=== PATIENT | female | born 1945 | race Caucasian/White ===

== ENCOUNTER 2017-04-13 10:29 | Inpatient (IN) | payer MEDICARE, OTHER ==
[~2017-04-13] VITALS: Ht 157.5 cm; Wt 81.6 kg
[~2017-04-13 10:29] MED LIST: ACET500T33 PO; CELE400C PO; CHOL5000 PO; FERR-26 PO; LECI400C PO; OMEP40CA5 PO; RASP100C PO; WARF-78 PO
--- NOTE | 2017-04-13 10:39 | EKG ---
[facility] [address] [place] [address] Test Date: 2017-04-13 Test Time: 10:35:08 Pat Name: NOAH LYN Department: Room: Gender: F Reservations Manager: : 1945 Requested By: VEDA MILLER Order Number: [id number] Reading MD: Measurements Intervals Crawford Rate: 89 P: 44 OK: 150 QRS: -5 QRSD: 80 T: 34 QT: 350 QTc: 427 Interpretive Statements SINUS RHYTHM LEFT ATRIAL ABNORMALITY LEFTWARD AXIS QRS(T) CONTOUR ABNORMALITY CONSIDER ANTEROLATERAL MYOCARDIAL DAMAGE ABNORMAL ECG RI6.01 No previous ECG available for comparison
[2017-04-13 10:45] LABS: BASO # 0.1 x10^3/uL (0.0-0.2); BASO % 1 % (0-3); EOS % 5 % (0-3); HEMOGLOBIN 13.4 g/dL (12.0-15.5); LYMPH # 2.8 x10^3/uL (1.0-4.8); LYMPH % 32 % (24-48); MEAN CORPUSCULAR HEMOGLOBIN 28 pg (25-35); MEAN CORPUSCULAR HGB CONC 33 g/dL (31-37); MEAN CORPUSCULAR VOLUME 87 fL (79-100); MONO % 8 % (0-9); NEUT % 55 % (31-73); PLATELET COUNT 257 x10^3/uL (140-400); RED BLOOD COUNT 4.74 x10^6/uL (3.50-5.40); RED CELL DISTRIBUTION WIDTH 13.6 % (11.5-14.5); WHITE BLOOD COUNT 8.9 x10^3/uL (4.0-11.0)
[2017-04-13] MEDS ORDERED: ASPIRIN 325 MG TABLET PO ONE (10:45)
[2017-04-13] MEDS: NITROGLYCERIN SUBLINGUAL 0.4 MG BOTTLE OF 25. SL PRN ×2 (10:52→11:08)
--- NOTE | 2017-04-13 10:53 | PHYS DOC ---
Past Medical History Past Medical History: GERD, Hypertension Past Surgical History: Hysterectomy, Knee Replacement, Other Additional Past Surgical Histo: BILATERAL KNEE REPLACEMENT, R WRIST Alcohol Use: None Drug Use: None Adult General Chief Complaint Chief Complaint: CHEST PAIN HPI HPI Patient is a 71 year old female who presents with chest pain on the left side of her chest for 2 weeks. Patient describes it as dull and pressure-like with radiation into her back and into her arm. It improves with rest, patient states she thinks it's brought on by stress. She does get short of breath when the pain occurs. No prior similar symptoms. Denies any known history of coronary artery disease. She also reports that she does not take anything for her blood pressure which is notably elevated today. Patient denies any lung or cardiac history, no risk factors for PE or DVTs. Primary care physician is Dr. Rod. Review of Systems Review of Systems Constitutional: Denies fever or chills [] Eyes: Denies change in visual acuity, redness, or eye pain [] HENT: Denies nasal congestion or sore throat [] Respiratory: Denies cough or shortness of breath [] Cardiovascular: No additional information not addressed in HPI [] GI: Denies abdominal pain, nausea, vomiting, bloody stools or diarrhea [] : Denies dysuria or hematuria [] Musculoskeletal: Denies back pain or joint pain [] Integument: Denies rash or skin lesions [] Neurologic: Denies headache, focal weakness or sensory changes [] Endocrine: Denies polyuria or polydipsia [] All other systems were reviewed and found to be within normal limits, except as documented in this note. Current Medications Current Medications Current Medications Medications (Trade) Dose Ordered Sig/[facility] Start Time Stop Time Status Last Admin Dose Admin Aspirin (Rajesh Aspirin) 325 mg 1X ONCE 04/13/17 10:45 04/13/17 10:46 DC 04/13/17 10:51 325 MG Nitroglycerin (Nitrostat) 0.4 mg PRN Q5MIN PRN 04/13/17 10:45 04/13/17 11:08 0.4 MG Allergies Allergies Allergies Coded Allergies Type Severity Reaction Last Updated Verified No Known Drug Allergies 09/13/13 No Physical Exam Physical Exam Constitutional: Well developed, well nourished, no acute distress, non-toxic appearance. [] HENT: Normocephalic, atraumatic, bilateral external ears normal, oropharynx moist, no oral exudates, nose normal. [] Eyes: PERRLA, EOMI, conjunctiva normal, no discharge. [] Neck: Normal range of motion, no tenderness, supple, no stridor. [] Cardiovascular:Heart rate regular with regular rhythm, no murmur [] Lungs & Thorax: Bilateral breath sounds clear to auscultation, no wheeze, crackles or rhonchi Abdomen: Bowel sounds normal, soft, no tenderness, no masses, no pulsatile masses. [] Skin: Warm, dry, no erythema, no rash. [] Back: No tenderness, no CVA tenderness. [] Extremities: No tenderness, no cyanosis, no clubbing, ROM intact, no edema. Negative Homans bilaterally Neurologic: Alert and oriented X 3, normal motor function, normal sensory function, no focal deficits noted. [] Psychologic: Affect normal, judgement normal, mood normal. [] Current Patient Data Vital Signs Vital Signs Date Time Temp Pulse Resp B/P (MAP) Pulse Ox O2 Delivery O2 Flow Rate FiO2 04/13/17 11:18 86 18 157/74 (101) Room Air 04/13/17 11:06 96 04/13/17 10:40 97.5 97.5 Lab Values Laboratory Tests Test 04/13/17 10:35 White Blood Count 8.9 x10^3/uL (4.0-11.0) Red Blood Count 4.74 x10^6/uL (3.50-5.40) Hemoglobin 13.4 g/dL (12.0-15.5) Hematocrit 41.0 % (36.0-47.0) Mean Corpuscular Volume 87 fL (79-100) Mean Corpuscular Hemoglobin 28 pg (25-35) Mean Corpuscular Hemoglobin Concent 33 g/dL (31-37) Red Cell Distribution Width 13.6 % (11.5-14.5) Platelet Count 257 x10^3/uL (140-400) Neutrophils (%) (Auto) 55 % (31-73) Lymphocytes (%) (Auto) 32 % (24-48) Monocytes (%) (Auto) 8 % (0-9) Eosinophils (%) (Auto) 5 % (0-3) H Basophils (%) (Auto) 1 % (0-3) Neutrophils # (Auto) 4.8 x10^3uL (1.8-7.7) Lymphocytes # (Auto) 2.8 x10^3/uL (1.0-4.8) Monocytes # (Auto) 0.7 x10^3/uL (0.0-1.1) Eosinophils # (Auto) 0.4 x10^3/uL (0.0-0.7) Basophils # (Auto) 0.1 x10^3/uL (0.0-0.2) Prothrombin Time 12.3 SEC (11.7-14.0) Prothrombin Time INR 1.0 (0.8-1.1) Sodium Level 141 mmol/L (136-145) Potassium Level 4.1 mmol/L (3.5-5.1) Chloride Level 103 mmol/L (98-107) Carbon Dioxide Level 28 mmol/L (21-32) Anion Gap 10 (6-14) Blood Urea Nitrogen 17 mg/dL (7-20) Creatinine 1.0 mg/dL (0.6-1.0) Estimated GFR (Cockcroft-Gault) 54.3 BUN/Creatinine Ratio 17 (6-20) Glucose Level 132 mg/dL (70-99) H Calcium Level 9.9 mg/dL (8.5-10.1) Magnesium Level 2.0 mg/dL (1.8-2.4) Total Bilirubin 0.6 mg/dL (0.2-1.0) Aspartate Amino Transferase (AST) 16 U/L (15-37) Alanine Aminotransferase (ALT) 24 U/L (14-59) Alkaline Phosphatase 116 U/L (46-116) Troponin I Quantitative < 0.017 ng/mL (0.000-0.055) PF-Oua-P-Type Natriuretic Peptide 110 pg/mL (0-124) Total Protein 7.4 g/dL (6.4-8.2) Albumin 3.9 g/dL (3.4-5.0) Albumin/Globulin Ratio 1.1 (1.0-1.7) Laboratory Tests 04/13/17 10:35 Laboratory Tests 04/13/17 10:35 EKG EKG 1035: 89 bpm, sinus, normal axis, normal intervals, no appreciable ST elevation or depression, nonischemic T waves, interpreted by me[] Heart monitor shows 83 bpm, sinus, no appreciable Arrhythmia, interpreted by me spo2: 99 % on nasal cannula o2 with good wave form interpreted by me. Radiology/Procedures Radiology/Procedures Chest x-ray: IMPRESSION: No acute abnormality detected. Course & Med Decision Making Course & Med Decision Making Pertinent Labs and Imaging studies reviewed. (See chart for details) Was given sprain and nitroglycerin. The nitroglycerin did improve her pain but it returned. She was given additional nitroglycerin. I spoke with Dr. Rod who accepted this patient for admission, cardiology consult placed. Dragon Disclaimer Dragon Disclaimer This electronic medical record was generated, in whole or in part, using a voice recognition dictation system. Departure Departure Impression: Primary Impression: Unstable angina Additional Impression: Accelerated hypertension Disposition: 09 ADMITTED INPATIENT Admitting Physician: Adrienne Rod Condition: GUARDED Referrals: ADRIENNE ROD MD (PCP) Problem Qualifiers VEDA MILLER MD Apr 13, 2017 10:53
[2017-04-13 10:54] LABS: PROTHROMBIN TIME PATIENT 12.3 SEC (11.7-14.0)
[2017-04-13 10:57] LABS: CALCIUM 9.9 mg/dL (8.5-10.1); GFR 54.3; POTASSIUM 4.1 mmol/L (3.5-5.1)
--- NOTE | 2017-04-13 10:58 | RAD ---
Indication: Chest pain for 2 weeks. Time of exam 10:52 AM Correlation is made with prior study from 12/03/2008. FINDINGS: The heart size is normal. The lungs are clear. No pleural effusion or pneumothorax is identified. The pulmonary vascularity is normal. IMPRESSION: No acute abnormality detected.
[2017-04-13 11:03] LABS: ALBUMIN 3.9 g/dL (3.4-5.0); ALBUMIN/GLOBULIN RATIO 1.1 (1.0-1.7); TOTAL BILIRUBIN 0.6 mg/dL (0.2-1.0); TOTAL PROTEIN 7.4 g/dL (6.4-8.2)
[2017-04-13] MEDS ORDERED: NITROGLYCERIN SUBLINGUAL 0.4 MG BOTTLE OF 25. SL PRN (11:30)
[2017-04-13] MEDS ORDERED: fentaNYL PF VIAL 100 MCG/2 ML VIAL IV PRN (11:30)
[2017-04-13] MEDS ORDERED: ONDANSETRON PF 4 MG/2 ML VIAL. IV PRN (11:30)
[2017-04-13 12:00] VITALS: BP 171/73
[2017-04-13] MEDS ORDERED: CALC500T54 PO (13:42)
[2017-04-13] MEDS ORDERED: REGADENOSON 0.4 MG/5 ML DISP.SYRIN. IV ONE (13:45)
[2017-04-13 19:44] VITALS: BP 132/72
[2017-04-13 22:50] VITALS: BP 135/75
[2017-04-14 02:47] VITALS: BP 169/77
[2017-04-14 07:00] VITALS: BP 154/72
[2017-04-14] MEDS ORDERED: ASPI81TA50 PO (08:00)
--- NOTE | 2017-04-14 08:11 | PDOC ---
PROGRESS NOTES Subjective Subjective Patient reports some chest soreness persists, improved from admission. Objective Objective Vital Signs Date Time Temp Pulse Resp B/P (MAP) Pulse Ox O2 Delivery O2 Flow Rate FiO2 04/14/17 02:47 97.8 78 16 169/77 (107) 94 Room Air 97.8 Intake and Output 04/14/17 07:00 Intake Total 370 ml Output Total 250 ml Balance 120 ml Intake Oral 370 ml Output Urine Total 250 ml # Voids 3 Physical Exam Abdomen: Normal bowel sounds, Soft, No tenderness Heart: Regular rate Extremities: No edema General: Alert, Oriented X3, No acute distress Lungs: Clear to auscultation, Other (left chest wall with scant TTP ) Assessment Assessment Problems Medical Problems: (1) Accelerated hypertension Status: Acute (2) Unstable angina Status: Acute Plan Plan of Care 1. Chest pain - some discomfort persists. Troponin WNL x3. EKG without acute ischemic change. Patient had first part of stress test yesterday, will have resting images today. CXR is clear and patient is without evidence of acute infection. Suspect musculoskeletal origin of pain. Hope to send patient home today if stress test is negative and Cardiology is in agreement. Continue ASA 81 mg daily. 2. elevated BP - patient does not have history of HTN and BP on OV's is usually WNL, was 126/76 on OV in January. Patient advised to check BP at home and bring log of this to next OV to review. 3. glucose intolerance - diet controlled for patient, last A1C was 6.0. Continue to watch diet. 4. GERD - controlled, continue PPI. Comment Review of Relevant I have reviewed the following items ilda (where applicable) has been applied. Labs Laboratory Tests Test 04/13/17 10:35 04/13/17 17:00 04/13/17 23:15 White Blood Count 8.9 x10^3/uL (4.0-11.0) Red Blood Count 4.74 x10^6/uL (3.50-5.40) Hemoglobin 13.4 g/dL (12.0-15.5) Hematocrit 41.0 % (36.0-47.0) Mean Corpuscular Volume 87 fL (79-100) Mean Corpuscular Hemoglobin 28 pg (25-35) Mean Corpuscular Hemoglobin Concent 33 g/dL (31-37) Red Cell Distribution Width 13.6 % (11.5-14.5) Platelet Count 257 x10^3/uL (140-400) Neutrophils (%) (Auto) 55 % (31-73) Lymphocytes (%) (Auto) 32 % (24-48) Monocytes (%) (Auto) 8 % (0-9) Eosinophils (%) (Auto) 5 % (0-3) Basophils (%) (Auto) 1 % (0-3) Neutrophils # (Auto) 4.8 x10^3uL (1.8-7.7) Lymphocytes # (Auto) 2.8 x10^3/uL (1.0-4.8) Monocytes # (Auto) 0.7 x10^3/uL (0.0-1.1) Eosinophils # (Auto) 0.4 x10^3/uL (0.0-0.7) Basophils # (Auto) 0.1 x10^3/uL (0.0-0.2) Prothrombin Time 12.3 SEC (11.7-14.0) Prothromb Time International Ratio 1.0 (0.8-1.1) Sodium Level 141 mmol/L (136-145) Potassium Level 4.1 mmol/L (3.5-5.1) Chloride Level 103 mmol/L (98-107) Carbon Dioxide Level 28 mmol/L (21-32) Anion Gap 10 (6-14) Blood Urea Nitrogen 17 mg/dL (7-20) Creatinine 1.0 mg/dL (0.6-1.0) Estimated GFR (Cockcroft-Gault) 54.3 BUN/Creatinine Ratio 17 (6-20) Glucose Level 132 mg/dL (70-99) Calcium Level 9.9 mg/dL (8.5-10.1) Magnesium Level 2.0 mg/dL (1.8-2.4) Total Bilirubin 0.6 mg/dL (0.2-1.0) Aspartate Amino Transf (AST/SGOT) 16 U/L (15-37) Alanine Aminotransferase (ALT/SGPT) 24 U/L (14-59) Alkaline Phosphatase 116 U/L (46-116) Troponin I Quantitative < 0.017 ng/mL (0.000-0.055) < 0.017 ng/mL (0.000-0.055) < 0.017 ng/mL (0.000-0.055) DM-Qxr-A-Type Natriuretic Peptide 110 pg/mL (0-124) Total Protein 7.4 g/dL (6.4-8.2) Albumin 3.9 g/dL (3.4-5.0) Albumin/Globulin Ratio 1.1 (1.0-1.7) Laboratory Tests Test 04/13/17 10:35 04/13/17 17:00 04/13/17 23:15 White Blood Count 8.9 x10^3/uL (4.0-11.0) Red Blood Count 4.74 x10^6/uL (3.50-5.40) Hemoglobin 13.4 g/dL (12.0-15.5) Hematocrit 41.0 % (36.0-47.0) Mean Corpuscular Volume 87 fL (79-100) Mean Corpuscular Hemoglobin 28 pg (25-35) Mean Corpuscular Hemoglobin Concent 33 g/dL (31-37) Red Cell Distribution Width 13.6 % (11.5-14.5) Platelet Count 257 x10^3/uL (140-400) Neutrophils (%) (Auto) 55 % (31-73) Lymphocytes (%) (Auto) 32 % (24-48) Monocytes (%) (Auto) 8 % (0-9) Eosinophils (%) (Auto) 5 % (0-3) Basophils (%) (Auto) 1 % (0-3) Neutrophils # (Auto) 4.8 x10^3uL (1.8-7.7) Lymphocytes # (Auto) 2.8 x10^3/uL (1.0-4.8) Monocytes # (Auto) 0.7 x10^3/uL (0.0-1.1) Eosinophils # (Auto) 0.4 x10^3/uL (0.0-0.7) Basophils # (Auto) 0.1 x10^3/uL (0.0-0.2) Prothrombin Time 12.3 SEC (11.7-14.0) Prothromb Time International Ratio 1.0 (0.8-1.1) Sodium Level 141 mmol/L (136-145) Potassium Level 4.1 mmol/L (3.5-5.1) Chloride Level 103 mmol/L (98-107) Carbon Dioxide Level 28 mmol/L (21-32) Anion Gap 10 (6-14) Blood Urea Nitrogen 17 mg/dL (7-20) Creatinine 1.0 mg/dL (0.6-1.0) Estimated GFR (Cockcroft-Gault) 54.3 BUN/Creatinine Ratio 17 (6-20) Glucose Level 132 mg/dL (70-99) Calcium Level 9.9 mg/dL (8.5-10.1) Magnesium Level 2.0 mg/dL (1.8-2.4) Total Bilirubin 0.6 mg/dL (0.2-1.0) Aspartate Amino Transf (AST/SGOT) 16 U/L (15-37) Alanine Aminotransferase (ALT/SGPT) 24 U/L (14-59) Alkaline Phosphatase 116 U/L (46-116) Troponin I Quantitative < 0.017 ng/mL (0.000-0.055) < 0.017 ng/mL (0.000-0.055) < 0.017 ng/mL (0.000-0.055) ND-Hsx-F-Type Natriuretic Peptide 110 pg/mL (0-124) Total Protein 7.4 g/dL (6.4-8.2) Albumin 3.9 g/dL (3.4-5.0) Albumin/Globulin Ratio 1.1 (1.0-1.7) Medications Current Medications Aspirin (Rajesh Aspirin) 325 mg 1X ONCE PO Last administered on 04/13/17 10:51 ; Start 04/13/17 at 10:45; Stop 04/13/17 at 10:46; Status DC Nitroglycerin (Nitrostat) 0.4 mg PRN Q5MIN PRN SL CHEST PAIN Last administered on 04/13/17 11:08; Start 04/13/17 at 10:45 Ondansetron HCl (Zofran) 4 mg PRN Q8HRS PRN IV NAUSEA/VOMITING; Start 04/13/17 at 11:30; Stop 04/14/17 at 11:29 Fentanyl Citrate (Fentanyl 2ml Vial) 50 mcg PRN Q1HR PRN IV PAIN; Start at 11:30; Stop 04/14/17 at 11:29 Nitroglycerin (Nitrostat) 0.4 mg PRN Q5MIN PRN SL CHEST PAIN; Start 04/13/17 at 11:30; Stop 04/14/17 at 11:29 Regadenoson (Lexiscan) 0.4 mg 1X ONCE IV ; Start 04/13/17 at 13:45; Stop at 13:46; Status DC Dobutamine HCl 100 mg/Sodium Chloride 108 ml @ 0 mls/hr 1X ONCE IV Last administered on 04/13/17t 14:15; Start 04/13/17 at 14:15; Stop 04/13/17 at 14:16 ; Status DC Active Scripts Active Aspir-Low (Aspirin) 81 Mg Tablet.dr 1 Tab PO DAILY Reported Calcium (Calcium Carbonate) 500 Mg Tab.chew 500 Mg PO DAILY Tylenol Extra Strength (Acetaminophen) 500 Mg Tablet 1,000 Mg PO DAILY08 Vitamin D3 (Cholecalciferol (Vitamin D3)) 5,000 Unit Capsule 10,000 Unit PO DAILY08 Lecithin (Lecithin, Soy) 400 Mg Capsule 400 Mg PO DAILY08 Omeprazole 40 Mg Capsule.dr 40 Mg PO DAILY08 Vitals/I & O Vital Sign - Last 24 Hours 04/13/17 04/13/17 04/13/17 04/13/17 10:34 10:40 10:52 10:57 Temp 97.5 97.5 Pulse 93 89 86 109 Resp 18 18 18 B/P (MAP) 214/92 (132) 214/92 (132) 204/93 159/79 (105) Pulse Ox 97 97 97 O2 Delivery Room Air Room Air Room Air 04/13/17 04/13/17 04/13/17 04/13/17 11:06 11:08 11:18 12:00 Temp 97.7 97.7 Pulse 86 84 86 68 Resp 17 18 20 B/P (MAP) 160/76 (104) 160/76 157/74 (101) 171/73 (105) Pulse Ox 96 96 O2 Delivery Room Air Room Air Room Air 04/13/17 04/13/17 04/13/17 04/13/17 12:30 19:44 19:45 22:50 Temp 98.5 98.1 98.5 98.1 Pulse 90 78 Resp 16 18 B/P (MAP) 132/72 (92) 135/75 (95) Pulse Ox 93 93 O2 Delivery Room Air Room Air Room Air Room Air 04/14/17 02:47 Temp 97.8 97.8 Pulse 78 Resp 16 B/P (MAP) 169/77 (107) Pulse Ox 94 O2 Delivery Room Air Intake and Output 04/13/17 04/13/17 04/14/17 15:00 23:00 07:00 Intake Total 250 ml 120 ml Output Total 250 ml Balance 0 ml 120 ml REMINGTON SUERO MD Apr 14, 2017 08:11
[2017-04-14] MEDS ORDERED: ACETAMINOPHEN 500 MG TABLET PO PRN (08:30)
[2017-04-14] MEDS ORDERED: ASPIRIN ENTERIC COATED 81 MG TABLET.DR. PO SCH (09:00)
--- NOTE | 2017-04-14 09:39 | RAD ---
APPROVED REPORT Test Type: Pharmacological Stress Nurse/Tech: Arianna Guerrero R.N. Test Indications: chest pain Cardiac History: htn, Medications: see ehr Medical History: see ehr Resting ECG: SR Resting Heart Rate: 80 bpm Resting Blood Pressure: 157/68mmHg Pretest Chest Pain: No chest pain Nurse/Tech Notes lungs cta, heart tones regular Consent: The procedure was explained to the patient in lay terms. Informed consent was witnessed. Dale eout was entered into G-mode. History and Stress Test performed by [facility]. Details Pharmacologic stress testing was performed using Dobutamine with a maximal infusion of 20 mcg/mg/min. There was no low-level exercise performed along with the infusion Stress Symptoms No chest pain or symptoms. POST EXERCISE Reason for Termination: Reached target heart rate Target HR: Yes Max HR: 143 bpm 90.5% of Maximum Predicted HR: 158 bpm Blood Pressure response to exercise: Normal blood pressure response during stress. Chest Pain: No. Arrhythmia: No. ST Change: Yes. Non-specific upsloping less than 1mm ST depression. Pt had no pain, just felt heart beating hard INTERPRETATION Stress EKG Conclusion: No evidence of stress induced EKG changes. Imaging Protocol IMAGE PROTOCOL: Stress Tc-99m/rest Tc-99m 2 days Rest: Stress: Viability: Radiopharm.Tc99m Sestamibi [id number] Duration 12min. Img Date 04/13/2017 Inj-Img [id number]. Stress Admin Site: IV - Left AntecubitalAdministrator: VANDANA Polk STRESS DATA End Diast. Vol.80.0mlAv. Heart Rate98.0bpm End Syst. Vol.12.0mlCO Index BSA0.0L/min Myocardial Ubnu705.0gEject. Zellfctq55.0% Stress Rates Pk. Fill Rate4.08EDV/secLVtime Pk. Fill 153.04msec Pk. Empty Rate4.53ESV/secLVtime Pk. Eject97.43msec 05/12 Pk. Fill1.39EDV/sec Stress Scores Regional WT0.00Summed WT0.00 Regional WM0.00Summed WM0.00 LV Perfusion Normal perfusion at stress. Wall Motion Normal wall motion. LV Perf. Quant 17 Seg. SSS0.00 Stress Defect Extent (% LAD)0.00Rest Defect Extent (% LAD)Rev. Defect Extent (% LAD)0.00 Stress Defect Extent (% LCX) 0.00Rest Defect Extent (% LCX)Rev. Defect Extent (% LCX)0.00 Stress Defect Extent (% RCA)0.00Rest Defect Extent (% RCA)Rev. Defect Extent (% RCA)0.00 Stress Defect Extent (% MARII)0.00Rest Defect Extent (% MARII)Rev. Defect Extent (% MARII)0.00 Other Information Quality:Good Risk Assessment: Low Risk Conclusion 1. No evidence of EKG changes with stress testing. 2. Normal perfusion at stress. 3. Low risk study. 4. EF > 60%.
--- NOTE | 2017-04-14 10:01 | PDOC ---
CARDIO Progress Notes Date and Time Date of Service 04/14/17 Time of Evaluation 0950 Subjective Subjective: No shortness of breath, No Palpitations Vitals Vitals Vital Signs Date Time Temp Pulse Resp B/P (MAP) Pulse Ox O2 Delivery O2 Flow Rate FiO2 04/14/17 08:00 Room Air 04/14/17 07:00 97.5 79 21 154/72 (99) 95 97.5 Weight Weight [ ] Input and Output Intake and Output Intake and Output 04/14/17 07:00 Intake Total 370 ml Output Total 250 ml Balance 120 ml Intake Oral 370 ml Output Urine Total 250 ml # Voids 3 Laboratory Labs Laboratory Tests Test 04/13/17 10:35 04/13/17 17:00 04/13/17 23:15 White Blood Count 8.9 x10^3/uL (4.0-11.0) Red Blood Count 4.74 x10^6/uL (3.50-5.40) Hemoglobin 13.4 g/dL (12.0-15.5) Hematocrit 41.0 % (36.0-47.0) Mean Corpuscular Volume 87 fL (79-100) Mean Corpuscular Hemoglobin 28 pg (25-35) Mean Corpuscular Hemoglobin Concent 33 g/dL (31-37) Red Cell Distribution Width 13.6 % (11.5-14.5) Platelet Count 257 x10^3/uL (140-400) Neutrophils (%) (Auto) 55 % (31-73) Lymphocytes (%) (Auto) 32 % (24-48) Monocytes (%) (Auto) 8 % (0-9) Eosinophils (%) (Auto) 5 % (0-3) Basophils (%) (Auto) 1 % (0-3) Neutrophils # (Auto) 4.8 x10^3uL (1.8-7.7) Lymphocytes # (Auto) 2.8 x10^3/uL (1.0-4.8) Monocytes # (Auto) 0.7 x10^3/uL (0.0-1.1) Eosinophils # (Auto) 0.4 x10^3/uL (0.0-0.7) Basophils # (Auto) 0.1 x10^3/uL (0.0-0.2) Prothrombin Time 12.3 SEC (11.7-14.0) Prothromb Time International Ratio 1.0 (0.8-1.1) Sodium Level 141 mmol/L (136-145) Potassium Level 4.1 mmol/L (3.5-5.1) Chloride Level 103 mmol/L (98-107) Carbon Dioxide Level 28 mmol/L (21-32) Anion Gap 10 (6-14) Blood Urea Nitrogen 17 mg/dL (7-20) Creatinine 1.0 mg/dL (0.6-1.0) Estimated GFR (Cockcroft-Gault) 54.3 BUN/Creatinine Ratio 17 (6-20) Glucose Level 132 mg/dL (70-99) Calcium Level 9.9 mg/dL (8.5-10.1) Magnesium Level 2.0 mg/dL (1.8-2.4) Total Bilirubin 0.6 mg/dL (0.2-1.0) Aspartate Amino Transf (AST/SGOT) 16 U/L (15-37) Alanine Aminotransferase (ALT/SGPT) 24 U/L (14-59) Alkaline Phosphatase 116 U/L (46-116) Troponin I Quantitative < 0.017 ng/mL (0.000-0.055) < 0.017 ng/mL (0.000-0.055) < 0.017 ng/mL (0.000-0.055) FW-Fvz-R-Type Natriuretic Peptide 110 pg/mL (0-124) Total Protein 7.4 g/dL (6.4-8.2) Albumin 3.9 g/dL (3.4-5.0) Albumin/Globulin Ratio 1.1 (1.0-1.7) Physical Exam HEENT: Neck Supple W Full Motion Chest: Symmetric LUNGS: Clear to Auscultation Heart: S1S2, RRR, no murmurs Abdomen: Soft N/T Extremities: No Edema Neurology: alert, oriented, follow commands Assessment Assessment 1. Chest pain, atypical. troponin series normal- AMI ruled out 2. Accelerated hypertension; improved but remains slightly elevated 3. GERD; PPI Recommendations Discusses addition of ACEi- patient would like to defer at this time and will follow up with PCP. If remains elevated, will consider at that time. MPI without evidence of ischemia or infarct. May discharge from a CV standpoint. SCOTTIE EMERY APRN Apr 14, 2017 10:01
--- NOTE | 2017-04-14 10:23 | DS ---
DATE OF DISCHARGE: 04/14/2017 CHIEF COMPLAINT: Chest pain. HISTORY OF PRESENT ILLNESS: The patient is a 71-year-old female with no history of coronary artery disease. She presented to the Emergency Room with the above complaint. She reported pain on the left side of her chest for over 2 weeks. The pain was dull and somewhat intermittent. There was some radiation into her back and down her left arm at times. She continued to do her normal activities, but when the symptoms persisted, her family persuaded her to come to the Emergency Room. Initial evaluation there included a chest x-ray, which was clear and an EKG, which was without acute ischemic change and initial troponin, which was negative. The patient was given nitroglycerin and seemed to have some improvement in her pain. She was admitted for further evaluation. PAST MEDICAL HISTORY: Glucose intolerance, GERD, allergic rhinitis. PAST SURGICAL HISTORY: Bilateral knee replacements, TAHBSO, right wrist ORIF. ALLERGIES: The patient has no known drug allergies. HOME MEDICATIONS: Aspirin 81 mg daily, calcium daily, omeprazole 40 mg daily. FAMILY HISTORY: Noncontributory. SOCIAL HISTORY: The patient is . She has never smoked cigarettes. She does not drink alcohol to excess. REVIEW OF SYSTEMS: The patient states that she has been feeling well. She has not had fever or chills. She has not had a cough or chest congestion. She already received her flu shot this fall. She denies abdominal pain, nausea, vomiting or problems with her bowels. She denies dysuria or increased urinary frequency. She denies lower extremity edema. She has been taking her usual medications daily. PHYSICAL EXAMINATION: GENERAL: The patient is alert and oriented x 3, resting comfortably in bed in no acute distress. HEENT: PERRL, EOMI, sclerae clear. Oropharynx: Mucous membranes moist. NECK: Supple, without lymphadenopathy. CHEST: Clear to auscultation with normal respiratory effort and good breath sounds throughout. There is scant tenderness to palpation over the left chest wall. CARDIOVASCULAR: Regular rhythm without murmur. ABDOMEN: Soft, nontender, normoactive bowel sounds are present. EXTREMITIES: Without edema. HOSPITAL COURSE: The patient was admitted and placed on telemetry where she remains in sinus rhythm. Two more troponins are completely within normal limits. The patient reports that the pain has improved, but there is still some soreness present. She has not felt the need to take any pain medication for this. The patient had the first portion of a stress test yesterday. She will complete that test today and be seen in consultation by Cardiology. If the test is negative, it is anticipated she will be able to be discharged to home. She is advised to continue aspirin daily. The patient does not have a history of hypertension and is usually normotensive at office visits. Her blood pressure was quite elevated at admission and has been somewhat labile overnight. She will be advised to monitor her blood pressure at home and bring the results to our office. If persistent elevation occurs, we will start her on blood pressure medication. The patient has glucose intolerance, which is well controlled by her diet. Her GERD is well controlled with the omeprazole. ADDENDUM: Stress test was within evidence of ischemia. FINAL DIAGNOSES: 1. Musculoskeletal chest pain. 2. Elevated blood pressure. 3. Glucose intolerance. 4. Gastroesophageal reflux disease. DISCHARGE MEDICATIONS: Remain the same as at admission. FOLLOWUP: With Dr. Rod within 2 weeks. Follow up with Cardiology as advised. REMINGTON ROD MD DR: KEYONA/vicky JOB#: [id number] / [id number] JERSON
[2017-04-14 10:41] VITALS: BP 150/81
--- NOTE | 2017-04-14 19:08 | CONS ---
DATE OF CONSULTATION: 04/13/2017 REASON FOR CONSULTATION: Chest pain. HISTORY OF PRESENT ILLNESS: The patient is a pleasant 71-year-old woman with mild history of hypertension who presented with some chest tightness over the course of the last day or so. She reports that her tightness is intermittent in nature without any significant alleviating or aggravating factors. Denies any palpitations, orthopnea, PND or lower extremity edema. PAST MEDICAL HISTORY: Hypertension. SOCIAL HISTORY: The patient denies any alcohol, tobacco or illicit drug use. FAMILY HISTORY: Noncontributory. REVIEW OF SYSTEMS: Negative for 10 out of 14 systems reviewed, unless otherwise mentioned above in HPI. ALLERGIES: None. MEDICATIONS: Please see medication list. PHYSICAL EXAMINATION: VITAL SIGNS: Stable. HEAD AND NECK: Unremarkable. HEART: Regular rate and rhythm without any murmurs, rubs or gallops. LUNGS: Clear to auscultation bilaterally. ABDOMEN: Soft, nontender, nondistended. EXTREMITIES: Without any clubbing, cyanosis or edema. NEUROLOGIC: No focal deficits. MUSCULOSKELETAL: No trauma. DIAGNOSTIC STUDIES: Reviewed: Negative cardiac enzymes and normal EKG. IMPRESSION: 1. Atypical chest pain. 2. Hypertension. RECOMMENDATIONS: I had a long discussion with the patient with regards to her risk factors and interventions for evaluation of her chest pain. She ultimately decided to proceed with a nuclear stress test, which was performed and she had a negative nuclear stress test. From a cardiac standpoint, she would be deemed low risk at this point and can be safely discharged with close followup in the office to determine if she has any recurrent chest pain. Thank you for this consultation. CHACORTA HERNDON MD DR: PAULO/vicky JOB#: [id number] / [id number]
== END 2017-04-14 11:45 | disposition home or self-care (01) | DRG 313 ==
LOC: ER 10:29 → 2 SOUTH 11:27
PROVIDERS: ADMIT Family Medicine; ATTEND Family Medicine
DX: R07.89 Other chest pain (principal); I20.0 Unstable angina; E74.39 Other disorders of intestinal carbohydrate absorption; I10 Essential (primary) hypertension; K21.9 Gastro-esophageal reflux disease without esophagitis; Z96.653 Presence of artificial knee joint, bilateral; Z79.82 Long term (current) use of aspirin; Z90.710 Acquired absence of both cervix and uterus; Z90.722 Acquired absence of ovaries, bilateral
CPT/HCPCS: 36415; 71010; 78452; 80053; 83735; 83880; 84484; 85025; 85610; 93005; 93017; 96374; 96375; 96376; A9500; J1250; 99285-25

== ENCOUNTER → 2019-11-30 | Outpatient (CLI) | payer MEDICARE ==
[~2019-11-30] MED LIST changes: +ASPI81TA50 PO; +CALC500T54 PO; -FERR-26 PO; +FERR325T14 PO; +OMEP40CA45 PO; -OMEP40CA5 PO; -WARF-78 PO; +WARF5TAB2 PO
--- NOTE | 2019-11-30 10:47 | KCIC ---
EXAM: Thoracic spine MRI without contrast. HISTORY: Thoracic radiculopathy. TECHNIQUE: Multiplanar, multisequence magnetic resonance imaging of the thoracic spine was performed without contrast. COMPARISON: None. FINDINGS: There is thoracic kyphoscoliosis. There is mild anterolisthesis at the upper thoracic levels and there is mild listhesis at multiple cervical levels, not formally assessed on this exam. There is also grade 1 anterolisthesis of L3 on L4, L4 and L5 and L5 and S1. There are degenerative changes involving the lumbar spine which are not formally assessed on this exam. There is associated foraminal and mild central canal stenosis at L3-L4. There is marrow edema centered along the anterior endplates at T5-T6. This is degenerative in appearance. There is no edema to suggest acute or subacute fracture. There are few osseous hemangiomas. There is multilevel endplate remodeling and Schmorl's node formation. No thoracic spinal cord lesion is seen. The conus terminates at T12-L1. There is a small dilated nerve root sheath cysts/perineural cyst on the right at T6-T7 and T7-T8 there is multilevel facet arthropathy involving the thoracic spine. There are few small thoracic disc bulges. There is a minimal shallow left paracentral disc protrusion at T7-T8. There is moderate left facet arthropathy contributing to mild left foraminal stenosis at T10-T11. There is a 1.4 cm T2 hyperintense lesion within the right thyroid lobe. There is a moderate hiatal hernia. There is a large simple left renal cyst measuring 6.5 cm. No follow-up is routinely recommended for simple renal cysts. IMPRESSION: 1. 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 There is associated left foraminal stenosis at T10-T11. No significant central canal stenosis or thoracic spinal cord lesion is seen. 2. Multilevel degenerative change involving the cervical and lumbar spine, not formally assessed on this exam. 3. Mild thoracic kyphoscoliosis. 4. 1.4 cm T2 hyperintense lesion within the right thyroid lobe. This can be better assessed with a thyroid sonogram. Electronically signed by: Milana Ashford MD (11/30/2019 10:44 AM) [id number]
== END ==
LOC: KCIC MRI 09:04
PROVIDERS: ATTEND Family Medicine
DX: M47.24 Other spondylosis with radiculopathy, thoracic region (principal); M48.04 Spinal stenosis, thoracic region; M41.84 Other forms of scoliosis, thoracic region
CPT/HCPCS: 72146

== ENCOUNTER → 2019-12-19 | Outpatient (CLI) | payer MEDICARE ==
--- NOTE | 2019-12-19 16:57 | KCIC ---
Thyroid ultrasound study without comparison for nodule. TECHNIQUE AND FINDINGS: Real-time grayscale and color spectral Doppler evaluation of the thyroid gland is performed. The right lobe measures 3.9 x 1.8 x 1.7 cm and the left measures 4.3 x 1.2 x 1.2 cm. The isthmus measures 2.3 mm in thickness. The gland is diffusely heterogeneous. There are several 2 to 3 mm cysts throughout the gland. Within the right lobe, there are 2 nodules adjacent to one another in the mid portion, the largest of which is cystic and solid, isoechoic, with a thin smooth hypoechoic capsule and demonstrates internal vascularity. No central calcifications. This nodule is wider than tall. The second nodule slightly anterior and medial to the first measures 1.0 x 0.8 x 0.4 cm, and is spongiform, hypoechoic, wider than tall, and lacks a discrete margin. There is internal color flow. This nodule as well. No suspicious adenopathy is seen. IMPRESSION: 1. Multinodular thyroid with 2 nodules in the right lobe as described above. The dominant 1.6 cm nodule corresponds to a TR 2, and the second nodule is definitively benign. ACR TI-RADS 2017 Composition - cystic or completely cystic: Benign, no further score - spongiform: Benign, no further score - mixed cystic and Solid: 1 point - solid or almost completely solid: 2 points Echogenicity - anechoic: 0 points - hyper- or isoechoic: 1 point - hypoechoic: 2 points - very hypoechoic: 3 points Shape (assess on transverse plane) - wider than tall: 0 points - taller than wide: 3 points Margin - smooth: 0 points - ill-defined: 0 points - lobulated/irregular: 2 points - extra-thyroidal extension: 3 points Echogenic Foci - none: 0 points - large comet tail artifact: 1 point - peripheral/rim calcifications: 2 points - punctate echogenic foci: 3 points TR1 - 0-1 points; Benign TR2 - 2 points; Not Suspicious TR3 - 3 points; Mildly Suspicious; Follow-up at 1,3,5 years for >= 1.5cm and FNA for >=2.5cm TR4 - 4-6 points; Moderately Suspicious; Follow-up at 1,2,3,5 years for >= 1.0cm and FNA for >= 1.5cm TR5 - 7+ points; Highly Suspicous; Follow=up at 1,2,3,4,5 years for >= 0.5cm and FNA for >= 1.0cm Notes: Only score and report the Four highest scoring nodules. Significant interval enlargement on follow-uup is defined as >20% and > 2mm in two dimensions or > 50% increase in volume. If there are multiple nodules, the two with the highest ACR TI-RADS score should be sampled, rather than the two largest. Electronically signed by: Chilo Chambers MD (12/19/2019 4:54 PM) [id number]
== END | disposition home or self-care (01) ==
LOC: KCIC US 12:29
PROVIDERS: ATTEND Family Medicine
DX: E04.2 Nontoxic multinodular goiter (principal)
CPT/HCPCS: 76536